=== PATIENT | male | born 1995 | race Asian ===

== ENCOUNTER 2019-05-12 13:17 | Emergency (ER) | payer BC ==
[~2019-05-12] VITALS: Ht 160 cm; Wt 60.0 kg
[~2019-05-12 13:17] MED LIST: DICY10CA88 PO; LORA5TAB9 PO
[2019-05-12 13:39] VITALS: BP 129/82
[2019-05-12 14:07] LABS: CLARITY,URINE SLIGHTLY CLOUDY (Clear); COLOR,URINE YELLOW (Yellow); GLUCOSE, URINE NEGATIVE (Neg); KETONES,URINE 40 mg/dl (Neg); LEUKOCYTE ESTERASE ,URINE NEGATIVE (Neg); NITRITES, URINE NEGATIVE (Neg); OCCULT BLOOD,URINE NEGATIVE (Neg); PH,URINE 7.5 (4.8-8.0); PROTEIN,URINE NEGATIVE (Neg)
[2019-05-12 14:08] LABS: UA COLLECTION TYPE CLN CATCH MIDSTREAM
[2019-05-12 14:09] LABS: BASOPHILS # (AUTO) 0.1 X10'3 (0-0.2); BASOPHILS % (AUTO) 0.4 % (0-1); EOSINOPHILS # (AUTO) 0.1 X10'3 (0-0.9); EOSINOPHILS % (AUTO) 0.9 % (0-6); HEMOGLOBIN 13.2 g/dl (14.0-17.9); LYMPHOCYTES # (AUTO) 1.8 X10'3 (1.1-4.8); LYMPHOCYTES % (AUTO) 14.3 % (21-51); MEAN CORPUSCULAR HEMOGLOBIN 23.8 PG (27.0-31.0); MEAN CORPUSCULAR HGB CONC 33.8 g/dL (33.0-36.5); MEAN CORPUSCULAR VOLUME 70.4 FL (78-98); MEAN PLATELET VOLUME 7.6 FL (7.4-10.4); MONOCYTES # (AUTO) 0.7 X10'3 (0-0.9); MONOCYTES % (AUTO) 5.3 % (2-12); NEUTROPHILS # (AUTO) 9.9 X10'3 (1.8-7.7); NEUTROPHILS % (AUTO) 79.1 % (42-75); PLATELET COUNT 251 X10'3 (140-440); RED BLOOD COUNT 5.54 X10'6 (4.70-6.10); RED CELL DISTRIBUTION WIDTH 14.4 % (11.5-14.5); WHITE BLOOD COUNT 12.5 X10'3 (4.5-11.0)
[2019-05-12 14:23] LABS: SQUAMOUS EPITHELIAL CELL,UR FEW /LPF (FEW)
[2019-05-12 14:23] LABS: ALANINE AMINOTRANSFERASE 18 U/L (12-78); ALBUMIN 4.1 G/DL (3.4-5.0); ALBUMIN/GLOBULIN RATIO 1.2 (1.1-1.5); ALKALINE PHOSPHATASE 62 IU/L (46-116); ANION GAP 8 (8-16); ASPARTATE AMINO TRANSFERASE 16 U/L (10-37); BILIRUBIN,TOTAL 0.6 MG/DL (0.1-1.0); BLOOD UREA NITROGEN 10 MG/DL (7-18); BUN/CREATININE RATIO 11.6 (5.4-32.0); CALCIUM 8.7 MG/DL (8.5-10.1); CHLORIDE 103 MMOL/L (99-107); CREATININE 0.86 MG/DL (0.60-1.10); GLUCOSE 93 MG/DL (70-104); POTASSIUM 3.3 MMOL/L (3.5-5.1); SODIUM 141 MMOL/L (135-145); TOTAL CARBON DIOXIDE 29.7 MMOL/L (24-32); TOTAL PROTEIN 7.4 G/DL (6.4-8.2); eGFR > 90 ML/MIN
[2019-05-12 14:24] LABS: MUCUS STRANDS MODERATE /LPF (Neg)
[2019-05-12 14:25] LABS: TRANSITIONAL EPI CELLS,URINE FEW /HPF; WBC,URINE 0-4 /HPF (0-4)
[2019-05-12] MEDS: ibuprofen tablet 400 MG TABLET PO ONE ×2 (14:25→14:53)
[2019-05-12] MEDS: acetaminophen 325mg tablet PO ONE ×2 (14:25→14:59)
[2019-05-12] MEDS ORDERED: ondansetron 4mg rapidly disintigrating tab PO ONE (14:25)
[2019-05-12 14:29] LABS: AMORPHOUS PHOSPHATES 1+; BACTERIA,URINE NONE SEEN /HPF (Neg); RBC,URINE NONE SEEN /HPF (0-2)
[2019-05-12] MEDS ORDERED: ACET-2119 PO (15:25)
[2019-05-12] MEDS ORDERED: ONDA4TAB6 PO (15:25)
[2019-05-12] MEDS ORDERED: ibuprofen 100 MG/5 ML oral susp PO ONE (15:30)
[2019-05-12] MEDS ORDERED: acetaminophen 325mg/10.15ml oral unit dose solution PO ONE (15:30)
== END 2019-05-12 16:10 | disposition home or self-care (01) ==
LOC: ER 13:17
DX: A08.4 Viral intestinal infection, unspecified (principal); B34.9 Viral infection, unspecified; R05 Cough; R11.10 Vomiting, unspecified; R19.7 Diarrhea, unspecified; Z79.899 Other long term (current) drug therapy
CPT/HCPCS: 36415; 71045; 80053; 81001; 85025; 87502; 87503; 99284